=== PATIENT | female | born 1995 | race Caucasian/White ===

== ENCOUNTER 2018-08-16 12:11 | Emergency (ER) | payer OTHER ==
[~2018-08-16] VITALS: Ht 167.6 cm; Wt 57.6 kg
[2018-08-16] MEDS ORDERED: STRATTERA80 MG PO (12:33)
== END 2018-08-16 15:13 | disposition home or self-care (01) ==
LOC: ER 12:11
DX: K21.0 Gastro-esophageal reflux disease with esophagitis (principal)